=== PATIENT | female | born 1980 | race Caucasian/White ===

== ENCOUNTER 2016-12-09 22:34 | Emergency (ER) | payer MEDICAID ==
[~2016-12-09] VITALS: Ht 157.5 cm; Wt 68.0 kg
[2016-12-09 23:10] VITALS: BP 139/99
== END 2016-12-09 23:59 | disposition home or self-care (01) ==
LOC: ER 22:40
DX: I10 Essential (primary) hypertension (principal); Z98.890 Other specified postprocedural states
CPT/HCPCS: A4606; Z7502; Z7610